=== PATIENT | male | born 1995 | race African-American/Black ===

== ENCOUNTER 2020-09-16 20:56 | Emergency (ER) | payer OTHER ==
[~2020-09-16] VITALS: Ht 167.6 cm; Wt 59.0 kg
[2020-09-16] MEDS ORDERED: INTESTINEX680 M2 PO (21:59)
[2020-09-16] MEDS ORDERED: AMOX1TAB5 PO (21:59)
== END 2020-09-16 22:14 | disposition home or self-care (01) ==
LOC: ER 20:56
DX: S61.220A Laceration with foreign body of right index finger without damage to nail, initial encounter (principal); W25.XXXA Contact with sharp glass, initial encounter; Y93.89 Activity, other specified; Y92.69 Other specified industrial and construction area as the place of occurrence of the external cause; Y99.8 Other external cause status

== ENCOUNTER 2020-09-24 17:00 | Emergency (ER) | payer OTHER ==
[~2020-09-24] VITALS: Ht 167.6 cm; Wt 59.0 kg
[~2020-09-24 17:00] MED LIST: AMOX1TAB5 PO; INTESTINEX680 M2 PO
== END 2020-09-24 18:53 | disposition home or self-care (01) ==
LOC: ER 17:00
DX: Z48.02 Encounter for removal of sutures (principal)